=== PATIENT | female | born 1950 | race Caucasian/White ===

== ENCOUNTER → 2017-12-18 | Outpatient (CLI) | payer OTHER ==
[~2017-12-18] MED LIST: IND10 PO; K10 PO; L20 PO; LIB PO; MOT800 PO; PRI20 PO; RES15 PO; VIC PO; ZYL300 PO; [UNRECOGNIZED DRUG - CODE]
== END | disposition home or self-care (01) ==
LOC: NM 07:00
DX: R06.02 Shortness of breath (principal)
CPT/HCPCS: A9500; J2785

== ENCOUNTER 2019-01-20 18:53 | Emergency (ER) | payer OTHER ==
[~2019-01-20] VITALS: Ht 170.2 cm; Wt 105.2 kg
[2019-01-20 19:29] VITALS: Ht 170.2 cm; Wt 105.2 kg
[2019-01-20 21:56] LABS: PLATELET COUNT 211 x10^3mcL (130-400)
[2019-01-20 21:57] LABS: BASOPHIL % 0 % (0-2); RED CELL DISTRIBUTION WIDTH 16.7 % (11.5-14.5)
[2019-01-20 22:17] LABS: CK-MB 0.8 ng/mL (0-3.6)
[2019-01-20 22:18] LABS: T3 TOTAL 1.1 ng/mL
[2019-01-20 22:23] LABS: CALCIUM 8.8 mg/dL (8.5-10.1); CARBON DIOXIDE 28.1 mmol/L (21-32); CREATININE SERUM 1.8 mg/dL (0.6-1.0); POTASSIUM SERUM 4.2 mmol/L (3.5-5.1)
[2019-01-20 22:28] LABS: ALBUMIN 3.5 g/dL (3.4-5.0); BILIRUBIN TOTAL 0.9 mg/dL (0.20-1.00); C REACTIVE PROTEIN 3.8 mg/dL (<=0.9); TOTAL PROTEIN, SERUM 6.7 g/dL (6.4-8.2)
[2019-01-20 22:35] LABS: FREE T4 1.19 ng/dL (0.76-1.46); FREE THYROXINE INDEX 3.1 ug/dL (1.4-4.5); T4(THYROXINE) 9.4 ug/dL (4.7-13.3)
[2019-01-20 22:39] LABS: ERYTHROCYTE SED RATE 51 mm/hr (0-30)
[2019-01-20 23:22] VITALS: BP 145/60
[2019-01-20 23:57] LABS: microscopic required? NO
[2019-01-21 00:08] LABS: UA SPECIFIC GRAVITY 1.025 (1.005-1.035); urine erythrocyte NEGATIVE (NEGATIVE)
== END 2019-01-20 23:22 | disposition home or self-care (01) ==
LOC: ED 18:53
PROVIDERS: Specialist
DX: S80.812A Abrasion, left lower leg, initial encounter (principal); L03.116 Cellulitis of left lower limb; I12.9 Hypertensive chronic kidney disease with stage 1 through stage 4 chronic kidney disease, or unspecified chronic kidney disease; N18.3 Chronic kidney disease, stage 3 (moderate); Z88.2 Allergy status to sulfonamides; X58.XXXA Exposure to other specified factors, initial encounter; Y93.89 Activity, other specified; Y92.89 Other specified places as the place of occurrence of the external cause; Y99.8 Other external cause status
CPT/HCPCS: 36600; 84439; J0696; Q0092